=== PATIENT | male | born 1970 | race Caucasian/White ===

== ENCOUNTER 2020-05-01 16:00 | Emergency (ER) | payer BC ==
[~2020-05-01] VITALS: Ht 175.3 cm; Wt 95.3 kg
[2020-05-01 16:24] VITALS: BP 119/79
--- NOTE | 2020-05-01 16:24 | NUR ---
PATIENT AMBULATED TO BED 5.
--- NOTE | 2020-05-01 16:31 | NUR ---
49 Y/O M C/C ANXIETY X 1 MONTH. PER FURTHER COMPLAINTS OF SOB AND CHEST PAIN. CHEST PAIN DESCRIBED PRESSURE SENSATION, 9/10 PAIN, NON RADIATING, ON/OFF, NOTHING ALLEVIATES IT, TALKING/EATING EXACERBATES IT. NKA. HX HTN,PNA. NO RX. NO NVD. PT PRESENTS EUPNIC,VSS,AMBULATORY,A/OX4. SIDE RAIL X1.
--- NOTE | 2020-05-01 17:00 | NUR ---
RAD AT BEDSIDE
--- NOTE | 2020-05-01 17:10 | NUR ---
EMT AT BEDSIDE - EKG
[2020-05-01 17:12] LABS: BASOPHILS % (AUTO) 0.5 % (0.0-2.0); EOSINOPHILS % (AUTO) 0.6 % (0.0-4.0); HEMATOCRIT 46.3 % (36-52); HEMOGLOBIN 15.1 g/dL (12.0-18.0); LYMPHOCYTES # (AUTO) 0.8 K/uL (2.0-11.5); LYMPHOCYTES % (AUTO) 15.3 % (20.5-51.1); MEAN CORPUSCULAR HEMOGLOBIN 25 pg (27-31); MEAN CORPUSCULAR HGB CONC 33 g/dL (33-37); MEAN CORPUSCULAR VOLUME 77.3 fL (80-94); MONOCYTES # (AUTO) 0.5 K/uL (0.8-1.0); MONOCYTES % (AUTO) 8.5 % (1.7-9.3); NEUTROPHILS # (AUTO) 4.1 K/uL (1.8-7.7); NEUTROPHILS % (AUTO) 75.1 % (42.2-75.2); PLATELET COUNT (AUTO) 156 K/uL (140-450); RED BLOOD CELL COUNT(AUTO) 5.99 MIL/uL (4.20-6.10); RED CELL DISTRIBUTION WIDTH 13.5 % (11.6-13.7); WHITE BLOOD COUNT (AUTO) 5.5 K/uL (4.8-10.8)
[2020-05-01 17:26] LABS: ANION GAP 12.8 (8-16); CARBON DIOXIDE 29.1 mmol/L (21-32); CREATININE 1.2 mg/dL (0.6-1.3); POTASSIUM 3.9 mmol/L (3.5-5.1)
[2020-05-01 18:06] VITALS: BP 119/79
--- NOTE | 2020-05-01 18:06 | NUR ---
Patient discharged with v/s stable. Written and verbal after care instructions given and explained. Patient verbalized understanding. Ambulatory with steady gait. All questions addressed prior to discharge. Advised to follow up with PMD.
== END 2020-05-01 18:06 | disposition home or self-care (01) ==
LOC: MED 16:00 → EDSEX 16:00 → MED 18:06
DX: R06.02 Shortness of breath (principal); F41.9 Anxiety disorder, unspecified; I10 Essential (primary) hypertension; Z90.49 Acquired absence of other specified parts of digestive tract
CPT/HCPCS: 36415; 71045; 80048; 83880; 84484; 85025; 93005; 99285